=== PATIENT | female | born 1955 | race Hispanic/Latino ===

== ENCOUNTER 2022-06-25 12:39 | Emergency (ER) | payer MEDICARE ==
[~2022-06-25] VITALS: Ht 162.6 cm; Wt 88.5 kg
[2022-06-25 13:04] LABS: BASOPHILS % (AUTO) 0.2 % (0.0-5.0); EOSINOPHILS % (AUTO) 0.7 % (0.0-8.0); LYMPHOCYTES % (AUTO) 21.5 % (21.0-51.0); MEAN CORPUSCULAR HEMOGLOBIN 24.9 pg (27.0-33.0); MEAN CORPUSCULAR HGB CONC 30.3 g/dL (32.0-36.0); MEAN CORPUSCULAR VOLUME 82.5 fL (79-99); MONOCYTES % (AUTO) 4.6 % (3.0-13.0); NEUTROPHILS % (AUTO) 72.7 % (40.0-77.0); PLATELET COUNT (AUTO) 262 K/uL (130-400); RED BLOOD CELL COUNT(AUTO) 4.85 MIL/uL (4.00-5.50); RED CELL DISTRIBUTION WIDTH 14.1 % (11.0-15.5); WHITE BLOOD COUNT (AUTO) 9.3 K/uL (4.8-10.8)
[2022-06-25 13:18] LABS: ALBUMIN 3.3 g/dL (3.5-5.0); CREATININE 0.8 mg/dL (0.5-1.5); POTASSIUM 3.5 mmol/L (3.5-5.1); TOTAL PROTEIN, SERUM 8.1 g/dL (6.0-8.3)
[2022-06-25 13:36] LABS: B-TYPE NATRIURETIC PEPTIDE 105 pg/mL (0-100)
[2022-06-25 13:53] LABS: APPEARANCE,URINE CLEAR (CLEAR); BILIRUBIN,URINE NEGATIVE (NEGATIVE); COLOR,URINE YELLOW (YELLOW); GLUCOSE, URINE (UA) NEGATIVE (NEGATIVE); KETONES,URINE NEGATIVE (NEGATIVE); LEUKOCYTE ESTERASE ,URINE NEGATIVE Leu/uL (NEGATIVE); NITRATE,URINE NEGATIVE (NEGATIVE); OCCULT BLOOD,URINE TRACE-INTACT (NEGATIVE); PH,URINE 7.5 (5.0-8.0); PROTEIN,URINE NEGATIVE (NEGATIVE); UROBILINOGEN,URINE 0.2 mg/dL (0.2-1.0)
[2022-06-25] MEDS ORDERED: ACETAMINOPHEN 500 MG TABLET PO ONE (14:00)
[2022-06-25 14:01] LABS: BACTERIA,URINE Rare /HPF (None Seen); RBC,URINE 0-1 /HPF (0-1); SQUAMOUS EPITHELIAL CELL,UR Rare /HPF (0-2)
[2022-06-25 15:42] VITALS: BP 147/67
[2022-06-25] MEDS ORDERED: IBUP-2070 PO (15:42)
== END 2022-06-25 16:25 | disposition home or self-care (01) ==
LOC: EDH 12:39
DX: R10.32 Left lower quadrant pain (principal); I10 Essential (primary) hypertension; I95.9 Hypotension, unspecified; Z85.3 Personal history of malignant neoplasm of breast; Z91.040 Latex allergy status
CPT/HCPCS: 36415; 71045; 74176; 80053; 81001; 83880; 84484; 85025; 93005

== ENCOUNTER → 2023-03-29 | Outpatient (CLI) | payer OTHER, MEDICARE ==
[~2023-03-29] MED LIST: IBUP-2070 PO
[2023-03-29 09:20] LABS: BASOPHILS # (AUTO) 0.01 K/uL (0.00-0.20); BASOPHILS % (AUTO) 0.1 % (0.0-5.0); EOSINOPHILS # (AUTO) 0.12 K/uL (0.00-0.70); EOSINOPHILS % (AUTO) 1.5 % (0.0-8.0); HEMATOCRIT 42.6 % (36-48); IMMATURE GRANULOCYTE ABSOLUTE 0.03 K/uL (0-1); LYMPHOCYTES # (AUTO) 1.9 K/uL (1.0-4.8); LYMPHOCYTES % (AUTO) 23.6 % (21.0-51.0); MEAN CORPUSCULAR HEMOGLOBIN 26.9 pg (27.0-33.0); MEAN CORPUSCULAR HGB CONC 30.8 g/dL (32.0-36.0); MEAN CORPUSCULAR VOLUME 87.5 fL (79-99); MONOCYTES # (AUTO) 0.5 K/uL (0.1-1.0); MONOCYTES % (AUTO) 5.5 % (3.0-13.0); NEUTROPHILS # (AUTO) 5.6 K/uL (1.8-7.7); NEUTROPHILS % (AUTO) 68.9 % (40.0-77.0); PLATELET COUNT (AUTO) 261 K/uL (130-400); RED BLOOD CELL COUNT(AUTO) 4.87 MIL/uL (4.00-5.50); RED CELL DISTRIBUTION WIDTH 13.7 % (11.0-15.5); WHITE BLOOD COUNT (AUTO) 8.1 K/uL (4.8-10.8)
[2023-03-29 09:33] LABS: ALBUMIN 3.4 g/dL (3.5-5.0); BILIRUBIN,TOTAL 0.2 mg/dL (0.2-1.0); CREATININE 0.7 mg/dL (0.5-1.5); POTASSIUM 3.5 mmol/L (3.5-5.1); TOTAL PROTEIN, SERUM 7.9 g/dL (6.0-8.3)
== END | disposition home or self-care (01) ==
LOC: LAB 08:33
PROVIDERS: ATTEND Internal Medicine Gastroenterology
DX: R10.30 Lower abdominal pain, unspecified (principal)
CPT/HCPCS: 36415; 80053; 85025

== ENCOUNTER → 2023-04-05 | Outpatient (CLI) | payer OTHER, MEDICARE ==
[~2023-04-05] MED LIST changes: +IOHEXOL-350 75 ML VIAL IV ONE
== END | disposition home or self-care (01) ==
LOC: RAH 07:13
PROVIDERS: ATTEND Internal Medicine Gastroenterology
DX: N28.1 Cyst of kidney, acquired (principal); R10.30 Lower abdominal pain, unspecified
CPT/HCPCS: 74178; Q9967

== ENCOUNTER → 2024-10-03 | Outpatient (CLI) | payer OTHER, MEDICARE ==
[~2024-10-03] MED LIST changes: -IOHEXOL-350 75 ML VIAL IV ONE
--- NOTE | 2024-10-03 12:15 | HMCIMG ---
Exam Type: ABD 1VW Clinical Information: CONSTIPATION Comparison: None Findings: Abdomen demonstrates no evidence of pathologic calcification or soft tissue mass. There are no radiopacities to suggest calculous disease. The intestinal gas pattern is within normal limits without evidence of dilatation to suggest obstruction or adynamic ileus. The bony structures are unremarkable. IMPRESSION: Normal abdomen.
--- NOTE | 2024-10-03 15:10 | HMCIMG ---
Exam Type: US RENAL SONOGRAM Clinical Information: HEMATURIA Comparison: None Findings: Examination shows normal renal size and echogenicity bilaterally. Preserved cortical thickness and corticomedullary junction region is seen. No hydronephrosis or calculi are seen. No renal masses are seen. There is no evidence of perinephric fluid on either side. No evidence of significant ureteral dilatation is seen. The right kidney measures 9.2 x 5 cm. The left kidney measures 9.8 x 4.1 cm. Simple cyst left upper collecting system, 3.3 cm. The urinary bladder is normal. No bladder masses, stones, or wall thickening is seen. IMPRESSION: Normal renal anatomy bilaterally.
== END | disposition home or self-care (01) ==
LOC: RAH 10:13
PROVIDERS: ATTEND Internal Medicine
DX: N28.1 Cyst of kidney, acquired (principal); K59.00 Constipation, unspecified; R31.9 Hematuria, unspecified
CPT/HCPCS: 74018; 76770

== ENCOUNTER → 2025-02-25 | Outpatient (CLI) | payer OTHER, MEDICAID ==
[~2025-02-25] MED LIST changes: +IBUP-1492 PO; -IBUP-2070 PO
--- NOTE | 2025-02-25 12:31 | HMCIMG ---
DOUBLE CONTRAST UPPER GI SERIES: Finding: The study was performed using provocative maneuvers After swallowing effervescent crystal and thick barium, there is no definite intrinsic or extrinsic lesion seen in the esophagus. There is grade 2 esophageal reflux. There is no hiatal hernia The stomach is normal in size, shape, and configuration. The rugal folds appear to be normal. The duodenal bulb, duodenal sweep, and upper jejunum appear to be normal. There are multiple clips seen in the right axillary region. There is elevation of the right hemidiaphragm. Fluoroscopy time: 1.2 minutes IMPRESSION: Grade 2 esophageal reflux Otherwise a normal double contrast upper GI series.
== END | disposition home or self-care (01) ==
LOC: RAH 07:35
PROVIDERS: ATTEND Internal Medicine Gastroenterology
DX: K21.9 Gastro-esophageal reflux disease without esophagitis (principal); R14.0 Abdominal distension (gaseous)
CPT/HCPCS: 74240

== ENCOUNTER → 2025-04-03 | Outpatient (CLI) | payer OTHER, MEDICAID ==
--- NOTE | 2025-04-04 16:20 | HMCIMG ---
CLINICAL INDICATION: Asymptomatic menopausal state COMPARISON: None available TECHNIQUE: Bone densitometry is performed of the lumbar spine and left hip. FINDINGS: Total BMD of lumbar spine is 0.712 g/cm2 with a T-score of -3.0 and Z-score is -1.0. Total BMD of left hip is 0.859 g/cm2 with a T-score of -0.8 and Z-score is 0.6. FRAX SCORE: The 10 year fracture risk for a major osteoporotic fracture and hip fracture not reported T score at or below -2.5 IMPRESSION: 1. Osteoporosis of the lumbar spine and left hip 2. I would recommend follow-up in 13 months World Health Organization criteria for BMD interpretation classify patients as Normal (T-score at or above -1.0), Osteopenic (T-score between -1.0 and -2.5), or Osteoporotic (T-score at or below -2.5). FRAX SCORE: A. All treatment decisions require clinical judgment and consideration of individual patient factors, including patient preferences, comorbidities, previous drug use, risk factors not captured in the FRAX model (e.g., frailty, falls, vitamin D deficiency, increased bone turnover, interval significant decline in bone density) and possible [id number]-estimation of fracture risk by FRAX. B. In addition, the NOF Guide recommends that FDA-approved medical therapies be considered in postmenopausal women and men age greater than or equal to 50 years with a: i. Hip or vertebral (clinical or morphometric) fracture. ii. T-score of less than or equal to -2.5 at the spine or hip. iii. Ten-year fracture probability by FRAX of greater than or equal to 3% for hip fracture of greater than or equal to 20% for major osteoporotic fracture.
== END | disposition home or self-care (01) ==
LOC: RAH 09:10
PROVIDERS: ATTEND Nurse Practitioner Family
DX: M81.0 Age-related osteoporosis without current pathological fracture (principal); M85.89 Other specified disorders of bone density and structure, multiple sites; Z78.0 Asymptomatic menopausal state
CPT/HCPCS: 77080

== ENCOUNTER → 2025-05-26 | Outpatient (CLI) | payer OTHER, MEDICARE ==
--- NOTE | 2025-05-27 00:45 | HMCIMG ---
EXAM: CT Abdomen and Pelvis w/o Contrast CLINICAL HISTORY: TECHNIQUE: Axial computed tomography images of the abdomen and pelvis without intravenous contrast. Dose reduction technique was used including one or more of the following: automated exposure control, adjustment of mA and kV according to patient size, and/or iterative reconstruction. COMPARISON: None provided. FINDINGS: LUNG BASES: No basilar airspace consolidation or pleural effusion. LIVER: The liver appears normal with preserved size, shape, and attenuation. No focal hepatic lesions are visualized. GALLBLADDER AND BILE DUCTS: The gallbladder appears normal with preserved size, shape, and attenuation. No biliary ductal dilatation. No calcified stone. PANCREAS: The pancreas appears normal with preserved size, shape, and attenuation. SPLEEN: The spleen appears normal with preserved size, shape, and attenuation. ADRENAL GLANDS: The adrenal glands appear normal with preserved size, shape, and attenuation. KIDNEYS, URETERS, AND BLADDER: There is a well-circumscribed hypodense cystic lesion in the interpolar region of the left kidney. The lesion shows a smooth, uniformly thin wall with no internal septations, mural nodularity, or coarse calcifications. The attenuation pattern and morphology are characteristic of a benign simple renal cyst, categorized as Bosniak II, indicating a minimally complex lesion with extremely low malignant potential. Per consensus, no follow-up is needed for simple Bosniak type 1 and 2 renal cysts, unless the patient has a malignancy history or risk factors. The right kidney demonstrates normal size, contour, and attenuation, with no evidence of nephrolithiasis, ureteric calculus, hydronephrosis, or perinephric fat stranding. The urinary bladder is adequately distended with smooth wall thickness and no intraluminal mass, calculus, or focal abnormality. No hydronephrosis or nephrolithiasis. No ureteral or bladder calculi. STOMACH AND BOWEL: Visualized bowel loops demonstrate normal caliber and wall thickness, with no evidence of obstruction, ileus, or inflammatory change. No CT evidence of colitis or acute diverticulitis. APPENDIX: The appendix appears normal - nondilated, with no periappendiceal fat stranding or fluid. No CT evidence for appendicitis. PERITONEUM: No free fluid. No free air. LYMPH NODES: No lymphadenopathy. REPRODUCTIVE: The pelvic organs appear unremarkable, with no pelvic mass. Unremarkable as visualized. VASCULATURE: Atherosclerotic calcifications and vascular wall irregularities are noted along the abdominal aorta and its major branches; however, there is no aneurysmal dilatation, stenosis, or other significant vascular abnormality. ABDOMINAL WALL AND SOFT TISSUES: The surrounding soft tissues appear unremarkable. Unremarkable. BONES: The lumbar spine shows multilevel degenerative changes, including endplate sclerosis and vacuum disc phenomenon, reflecting chronic degenerative disc disease. No destructive, lytic, or expansile osseous lesions are identified throughout the visualized skeletal structures. No fracture or suspicious osseous abnormality. IMPRESSION: 1. No acute intra-abdominal or pelvic abnormality. 2. Benign-appearing left renal simple cyst (Bosniak II). 3. Multilevel chronic degenerative changes of the lumbar spine. /[place]
--- NOTE | 2025-05-27 01:30 | HMCIMG ---
EXAM: Ultrasound Retroperitoneum (Kidneys and Urinary Bladder) CLINICAL HISTORY: Microscopic haematuria TECHNIQUE: Real-time sonographic evaluation of kidneys and urinary bladder with image documentation. COMPARISON: None available. FINDINGS: RIGHT KIDNEY: Measures 10.2 ??? 5.1 ??? 4.9 cm. Normal cortical echotexture and corticomedullary differentiation. No calculus, mass, or hydronephrosis. LEFT KIDNEY: Measures 9.1 ??? 4.4 ??? 4.1 cm. Mid-pole cortical cyst noted measuring approximately 1.1 ??? 1.5 cm. No calculus or hydronephrosis. URINARY BLADDER: Wall thickness 4 mm. Pre-void volume 56 mL. Post-void residual???empty. Patient unable to fill bladder adequately during the study. MISCELLANEOUS: No free fluid or other significant abnormality. IMPRESSION: * Simple mid-pole cortical cyst in the left kidney (1.1 ??? 1.5 cm). * No renal calculus or hydronephrosis. /[place]
== END | disposition home or self-care (01) ==
LOC: RAH 11:53
PROVIDERS: ATTEND Urology
DX: N28.1 Cyst of kidney, acquired (principal); I70.0 Atherosclerosis of aorta; M47.816 Spondylosis without myelopathy or radiculopathy, lumbar region; M51.369 Other intervertebral disc degeneration, lumbar region without mention of lumbar back pain or lower extremity pain; N32.89 Other specified disorders of bladder; R31.29 Other microscopic hematuria
CPT/HCPCS: 74176; 76770